=== PATIENT | female | born 1970 | race Caucasian/White ===

== ENCOUNTER 2022-08-14 13:00 | Observation (INO) | payer BC ==
[~2022-08-14] VITALS: Ht 180.3 cm; Wt 74.8 kg
[2022-08-14 14:11] LABS: BASOPHILS % (AUTO) 0.6 % (0.0-5.0); HEMATOCRIT 43.6 % (36-48); LYMPHOCYTES % (AUTO) 21.1 % (21.0-51.0); MEAN CORPUSCULAR HEMOGLOBIN 33.3 pg (27.0-33.0); MEAN CORPUSCULAR HGB CONC 33.7 g/dL (32.0-36.0); MEAN CORPUSCULAR VOLUME 98.9 fL (79-99); MONOCYTES % (AUTO) 8.9 % (3.0-13.0); NEUTROPHILS % (AUTO) 66.5 % (40.0-77.0); PLATELET COUNT (AUTO) 246 K/uL (130-400); RED BLOOD CELL COUNT(AUTO) 4.41 MIL/uL (4.00-5.50); RED CELL DISTRIBUTION WIDTH 13.2 % (11.0-15.5); WHITE BLOOD COUNT (AUTO) 11.8 K/uL (4.8-10.8)
[2022-08-14 14:23] LABS: POTASSIUM 4.3 mmol/L (3.5-5.1)
[2022-08-14 14:32] VITALS: BP 119/56
[2022-08-14] MEDS ORDERED: AMPH30TA3 PO (14:35)
[2022-08-14] MEDS ORDERED: PRED10TA3 PO (14:35)
[2022-08-14] MEDS ORDERED: TRAZ150T79 PO (14:35)
[2022-08-15] VITALS (28 sets, daily range): BP systolic 93–128; BP diastolic 41–69
[2022-08-15] MEDS ORDERED: CLINDAMYCIN IVPB 900MG/50ML 50 ML IV ONE (06:15)
[2022-08-15] MEDS ORDERED: LACTATED RINGERS 1000ML 1,000 ML IV ONE (06:15)
[2022-08-15 06:31] LABS: BASOPHILS % (AUTO) 0.5 % (0.0-5.0); HEMATOCRIT 39.5 % (36-48); LYMPHOCYTES % (AUTO) 18.8 % (21.0-51.0); MEAN CORPUSCULAR HEMOGLOBIN 33.3 pg (27.0-33.0); MEAN CORPUSCULAR HGB CONC 33.9 g/dL (32.0-36.0); MEAN CORPUSCULAR VOLUME 98.3 fL (79-99); MONOCYTES % (AUTO) 10.3 % (3.0-13.0); NEUTROPHILS % (AUTO) 67.8 % (40.0-77.0); PLATELET COUNT (AUTO) 226 K/uL (130-400); RED BLOOD CELL COUNT(AUTO) 4.02 MIL/uL (4.00-5.50); RED CELL DISTRIBUTION WIDTH 13.1 % (11.0-15.5); WHITE BLOOD COUNT (AUTO) 10.3 K/uL (4.8-10.8)
[2022-08-15] MEDS ORDERED: CEFAZOLIN SODIUM 1 GM VIAL ONE (06:49)
[2022-08-15] MEDS ORDERED: THROMBIN-JMI 20000 UNIT KIT TP ONE (06:50)
[2022-08-15] MEDS ORDERED: SUCCINYLCHOLINE CHLORIDE 20 MG/ML 10 ML VIAL ONE (06:51)
[2022-08-15] MEDS ORDERED: LIDOCAINE PF 100MG/5ML (2%) SYRINGE 5ML ONE (06:51)
[2022-08-15] MEDS ORDERED: GLYCOPYRROLATE 1 MG/5 ML SYRINGE ONE (06:51)
[2022-08-15] MEDS ORDERED: DEXAMETHASONE SOD PHOSPHATE 10MG/ML 1ML VIAL ONE ×2 (06:51→06:53)
[2022-08-15] MEDS ORDERED: ROCURONIUM 10MG/1ML SYR 10 MG/ML ML ONE (06:52)
[2022-08-15] MEDS ORDERED: MIDAZOLAM HCL 1 MG/ML 2ML VIAL ONE ×2 (06:52→07:23)
[2022-08-15] MEDS ORDERED: NEOSTIGMINE 5MG/5ML SYR IV ONE (06:52)
[2022-08-15] MEDS ORDERED: PROPOFOL 10 MG/ML 20ML VIAL IV ONE (06:52)
[2022-08-15] MEDS ORDERED: ONDANSETRON 4MG INJ ONE ×2 (06:52→06:53)
[2022-08-15] MEDS ORDERED: FENTANYL CITRATE PF 50 MCG/1 ML 2ML VIAL ONE (06:53)
[2022-08-15] MEDS: BUPIVACAINE/EPI/PF 0.25% 10ML VIAL IJ SCH ×2 (07:00→07:30)
[2022-08-15] MEDS ORDERED: FENTANYL CITRATE PF 50 MCG/1 ML 5ML AMP IV ONE (07:56)
[2022-08-15] MEDS ORDERED: PHENYLEPHRINE HCL 10 MG/ML 1ML VIAL IV ONE (08:34)
[2022-08-15] MEDS ORDERED: ARTIFICIAL TEARS 3.5 GM OINTMENT ONE (08:35)
[2022-08-15] MEDS ORDERED: NALOXONE HCL 0.4 MG/1 ML ML ONE (09:31)
[2022-08-15] MEDS ORDERED: 0.9%NACL 10ML VIAL IVP PRN (10:00)
[2022-08-15] MEDS ORDERED: MORPHINE 2 MG SYG IVP PRN (10:00)
[2022-08-15] MEDS ORDERED: HYDROCODONE/ACETAMINOPHEN 5/325 MG TAB PO PRN (10:00)
[2022-08-15] MEDS ORDERED: PROMETHAZINE HCL 25 MG/ML 1ML AMPULE IM PRN (10:00)
[2022-08-15] MEDS: LACTATED RINGERS 1000ML 1,000 ML IV SCH ×2 (11:10→21:56)
[2022-08-15] MEDS ORDERED: COMPOUND PO NARCOTIC 1 EACH PO SCH (13:00)
[2022-08-15] MEDS: DEXAMETHASONE SOD PHOSPHATE 4 MG/ML 1ML VIAL IVP SCH ×3 (14:05→21:48)
[2022-08-15] MEDS ORDERED: ALPRAZOLAM 0.5 MG TABLET PO SCH (17:00)
[2022-08-15] MEDS: CLINDAMYCIN IVPB 900MG/50ML 50 ML IV SCH (17:24)
[2022-08-15] MEDS: TRAZODONE HCL 50 MG TAB PO SCH ×2 (21:00→21:49)
[2022-08-15] MEDS: AMPHETAMINE PO SCH (21:00)
[2022-08-15] MEDS: DEXTROAMPHETAMINE PO SCH (21:00)
[2022-08-15] MEDS: PREDNISONE 10 MG TABLET PO SCH (21:00)
[2022-08-16] MEDS: CLINDAMYCIN IVPB 900MG/50ML 50 ML IV SCH (02:00)
[2022-08-16 04:00] VITALS: BP 114/63
[2022-08-16] MEDS: DEXAMETHASONE SOD PHOSPHATE 4 MG/ML 1ML VIAL IVP SCH ×2 (05:07→10:09)
[2022-08-16 08:00] VITALS: BP 114/62
[2022-08-16] MEDS: AMPHETAMINE PO SCH (09:00)
[2022-08-16] MEDS: PREDNISONE 10 MG TABLET PO SCH (09:00)
[2022-08-16] MEDS: DEXTROAMPHETAMINE PO SCH (09:00)
== END 2022-08-16 12:00 | disposition home or self-care (01) ==
LOC: DAHIP 08-15 05:58 → 4DH 08-15 11:00
PROVIDERS: ADMIT Neurological Surgery; ATTEND Neurological Surgery
DX: M50.122 Cervical disc disorder at C5-C6 level with radiculopathy (principal); Z20.822 Contact with and (suspected) exposure to COVID-19; F41.9 Anxiety disorder, unspecified; Z79.899 Other long term (current) drug therapy
CPT/HCPCS: 80048; 84703; 85025 ×2; 87426; 36415 ×2; 71045; 93005; 22551; 22845; 20930; 96376 ×2; 96365; 96375; 72020; A6260; G0378 ×26; A4663; J7030; A4344; A4649 ×4; J7120; J3010 ×2; J0690; J2310; J3490 ×4; J1100 ×6; J2710; J0330; J2001; J2250 ×2; J2704 ×2; J2405 ×2; J7512; J2370; C1889; A4215; A4223; A4222; A4221; A4600; A4510

== ENCOUNTER → 2022-08-23 | Outpatient (CLI) | payer BC ==
[~2022-08-23] MED LIST: AMPH30TA3 PO; PRED10TA3 PO; TRAZ150T79 PO
== END | disposition home or self-care (01) ==
LOC: RAH 11:54
PROVIDERS: ATTEND Neurological Surgery
DX: J18.9 Pneumonia, unspecified organism (principal)
CPT/HCPCS: 71046

== ENCOUNTER → 2022-09-10 | Outpatient (CLI) | payer BC | END | disposition home or self-care (01) | LOC: RAH 08:34 | PROVIDERS: ATTEND Neurological Surgery | DX: M43.22 Fusion of spine, cervical region (principal) | CPT/HCPCS: 72040 ==